=== PATIENT | male | born 1945 | race Caucasian/White ===

== ENCOUNTER 2021-01-28 09:40 | Emergency (ER) | payer MEDICARE, MEDICAID ==
[~2021-01-28 09:40] MED LIST: Albuterol/Ipratropium 3.0-0.5 MG/3 ML Neb Soln NEB ONE
--- NOTE | 2021-01-28 09:48 | EDM.PDOC ---
ED HPI GENERAL MEDICAL PROBLEM - General Chief Complaint: Respiratory Problem Stated Complaint: TROUBLE BREATHING / LUNG CANCER Time Seen by Provider: 01/28/21 09:48 Source of Information: Reports: Patient, Old Records, RN, RN Notes Reviewed History Limitations: Reports: No Limitations - History of Present Illness INITIAL COMMENTS - FREE TEXT/NARRATIVE: Pt presents to ER from home by POV with c/o onset of shortness of breath about 2 days ago, and worse today. Pt states he has lung CA and is receiving chemo from Dr. Conklin. His last chemo was , 01/24/21 and he is due for chemo again this Thursday. Pt denies fever, chills, or sputum production. Admits to cough. He has been using Albuterol at home without relief. He does not have home oxygen. Pt smoked cigarettes from his teenage years until 2019 when he was diagnosed with lung CA. 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 Treatments - Related Data Allergies Allergy/AdvReac Type Severity Reaction Status Date / Time [id number] Reductase Allergy Muscle Verified 01/28/21 10:29 Inhibitor Aches Home Meds: Home Meds Donepezil HCl [Aricept] 10 mg PO BEDTIME 02/06/19 [History] carvediloL [Carvedilol] 25 mg PO DAILY 02/06/19 [History] Doxycycline [Vibramycin] 100 mg PO DAILY 01/28/21 [History] Sodium Chloride 1 tab PO DAILY 01/28/21 [History] Past Medical History Cardiovascular History: Reports: CAD, Cardiomyopathy Respiratory History: Reports: COPD Psychiatric History: Reports: Dementia Oncologic (Cancer) History: Reports: Lung Social & Family History - Family History Family Medical History: No Pertinent Family History - Tobacco Use Tobacco Use Status *Q: Former Tobacco User Tobacco Use Within Last Twelve Months: Cigarettes Years of Tobacco use: 56 Used Tobacco, but Quit: Yes - Living Situation & Occupation Living situation: Reports: Single Occupation: Retired ED ROS GENERAL - Review of Systems Review Of Systems: Comprehensive ROS is negative, except as noted in HPI. ED EXAM, GENERAL - Physical Exam Exam: See Below Exam Limited By: No Limitations General Appearance: Alert, Anxious, Mild Distress, Cachetic Eye Exam: Bilateral Eye: Normal Inspection Ears: Normal External Exam, Hearing Grossly Normal Nose: Normal Inspection, Normal Mucosa, No Blood Throat/Mouth: Normal Lips, Normal Voice, No Airway Compromise Head: Atraumatic, Normocephalic Neck: Normal Inspection, Full Range of Motion Respiratory/Chest: Chest Non-Tender, Decreased Breath Sounds, Crackles, Rhonchi Cardiovascular: Regular Rate, Rhythm, No Edema GI/Abdominal: Normal Bowel Sounds, Soft, Non-Tender Extremities: Normal Inspection, Non-Tender, No Pedal Edema Neurological: Alert, Oriented, No Motor/Sensory Deficits Psychiatric: Normal Mood Skin Exam: Warm, Dry, Intact, Normal Color, No Rash Course - Vital Signs Last Recorded V/S: Last Vital Signs Temp 97.0 F 01/28/21 10:27 Pulse 95 01/28/21 10:27 Resp 28 H 01/28/21 10:27 BP 103/74 01/28/21 10:27 Pulse Ox 72 L 01/28/21 10:27 - Orders/Labs/Meds Orders: Active Orders 24 hr Category Date Time Status Peripheral IV Care [RC] . DIRECTED Care 01/28/21 09:56 Active CULTURE BLOOD [BC] Stat Lab 01/28/21 10:15 Received CULTURE BLOOD [BC] Stat Lab 01/28/21 10:41 Received REFLEX LACTIC ACID YES OR NO [CHEM] Routine Lab 01/28/21 10:48 Received Levofloxacin/Dextrose 5%-Water [Levaquin in D5W 500 MG/ Med 01/28/21 10:36 Active 100 ML] 500 mg Premix Bag 1 bag IV ONETIME Piperacillin/Tazobactam [Zosyn] 3.375 gm Med 01/28/21 11:08 Ordered Sodium Chloride 0.9% [Normal Saline] 100 ml IV ONETIME Sodium Chloride 0.9% [Saline Flush] Med 01/28/21 09:56 Active 10 ml FLUSH ASDIRECTED PRN Blood Culture x2 Reflex Set [OM.PC] Stat Oth 01/28/21 09:55 Ordered Peripheral IV Insertion Adult [OM.PC] Stat Oth 01/28/21 09:56 Ordered Medication Orders Levofloxacin/Dextrose 500 mg/ (Premix) 100 mls @ 100 mls/hr IV ONETIME ONE Stop: 01/28/21 11:35 Last Admin: 01/28/21 10:58 Dose: 100 mls/hr Documented by: PATIENCE Piperacillin Sod/Tazobactam (Sod 3.375 gm/ Sodium Chloride) 100 mls @ 200 mls/hr IV ONETIME ONE Stop: 01/28/21 11:37 Sodium Chloride (Sodium Chloride 0.9% 10 Ml Syringe) 10 ml FLUSH ASDIRECTED PRN PRN Reason: Keep Vein Open Last Admin: 01/28/21 10:28 Dose: 10 ml Documented by: CALLIE Labs: Laboratory Tests 01/28/21 01/28/21 01/28/21 Range/Units 10:15 10:15 10:15 WBC 27.1 H* (5.0-10.0) 10^3/uL RBC 4.19 L (4.6-6.2) 10^6/uL Hgb 13.8 L (14.0-18.0) g/dL Hct 41.4 (40.0-54.0) % MCV 98.8 D (80-100) fL MCH 32.9 (27.0-34.0) pg MCHC 33.3 (33.0-35.0) g/dL Plt Count 114 L (150-450) 10^3/uL Neut % (Auto) 98.0 H (42.2-75.2) % Lymph % (Auto) 1.7 L (20.5-50.1) % [place] % (Auto) 0.2 L (2-8) % Eos % (Auto) 0.0 L (1.0-3.0) % Baso % (Auto) 0.1 (0.0-1.0) % Add Manual Diff Yes Neutrophils % (Manual) 97 H (42-75) % Lymphocytes % (Manual) 2 L (20-50) % Monocytes % (Manual) 1 L (2-8) % Sodium 129 L (136-145) mmol/L Potassium 4.8 (3.5-5.1) mmol/L Chloride 92 L (98-107) mmol/L Carbon Dioxide 27 (21-32) mmol/L Anion Gap 14.8 H (7-13) mEq/L BUN 46 H (7-18) mg/dL Creatinine 0.96 (0.70-1.30) mg/dL Est Cr Clr Drug Dosing 47.64 mL/min Estimated GFR (MDRD) > 60 BUN/Creatinine Ratio 47.9 (No establ ref range) Glucose 135 H (70-99) mg/dL Lactic Acid 2.3 H* (0.4-2.0) mmol/L Calcium 9.2 (8.5-10.1) mg/dL Total Bilirubin 0.8 (0.2-1.0) mg/dL AST 33 (15-37) U/L ALT 63 (16-63) U/L Alkaline Phosphatase 117 H (46-116) U/L Lactate Dehydrogenase 415 H (85-227) U/L B-Natriuretic Peptide 494 H (0-100) pg/ml Total Protein 6.4 (6.4-8.2) g/dL Albumin 2.5 L (3.4-5.0) g/dL Globulin 3.9 Albumin/Globulin Ratio 0.64 Meds: Medications Generic Name Dose Route Start Last Admin Trade Name Freq PRN Reason Stop Dose Admin Levofloxacin/Dextrose 500 mg/ 100 mls @ 100 mls/hr 01/28/21 10:36 01/28/21 10:58 Premix IV 01/28/21 11:35 100 mls/hr ONETIME ONE Administration Piperacillin Sod/Tazobactam 100 mls @ 200 mls/hr 01/28/21 11:08 Sod 3.375 gm/ Sodium Chloride IV 01/28/21 11:37 ONETIME ONE Sodium Chloride 10 ml 01/28/21 09:56 01/28/21 10:28 Sodium Chloride 0.9% 10 Ml Syringe FLUSH 10 ml ASDIRECTED PRN Administration Keep Vein Open Discontinued Medications Generic Name Dose Route Start Last Admin Trade Name Freq PRN Reason Stop Dose Admin Albuterol/Ipratropium Confirm 01/28/21 09:52 01/28/21 10:05 Albuterol/Ipratropium 3.0-0.5 Mg/3 Ml Neb Soln Administered 01/28/21 09:53 3 ml Dose Administration 3 ml .ROUTE .STK-MED ONE Methylprednisolone Sodium Succinate 125 mg 01/28/21 09:54 01/28/21 10:20 Methylprednisolone Sodium Succinate 125 Mg/2 Ml Sdv IVPUSH 01/28/21 09:55 125 mg ONETIME ONE Administration - Radiology Interpretation Free Text/Narrative:: [facility] Final Radiology Report Call: [phone] assistance Online chat: [email or web address] Name: JEANNETTE COLVIN Age: 75Years M Date: 01/28/2021 SSN: -- : [id number] Study: CR CHEST 1V FRONTAL Requesting Physician: TANA FLORENCE Images: 1 Addl Studies: Provided Clinical History: short of breath, Lung CA Contrast: Contrast Medium: Contrast Amount: Contrast Method: CONFIDENTIALITY STATEMENT This report is intended only for use by the referring physician, and only in accordance with law. If you received this in error, call [phone]. Page 1 of 1 PROCEDURE INFORMATION: Exam: XR Chest Exam date and time: 01/28/2021 10:18 AM Age: 75 years old Clinical indication: Other: Short of breath, lung CA TECHNIQUE: Imaging protocol: XR of the chest. Views: 1 view. COMPARISON: CT Chest w Cont 02/06/2019 3:17 PM FINDINGS: Lungs: Diffuse bilateral interstitial infiltrates have progressed since the CT of 02/06/2019 with very coarse and dense infiltrates in the upper lungs. Changes of emphysema Pleural spaces: Focal pleural thickening left upper lung laterally at site of the tumor seen on 02/06/2019 CT. No pleural effusion. No pneumothorax. Heart/Mediastinum: Mediastinal clips. Bones/joints: Sternotomy. Degenerative arthritis spine and shoulders. IMPRESSION: 1. Progression of coarse diffuse bilateral interstitial infiltrates, especially in the upper lungs compared with 02/06/2019 2. Emphysema Thank you for allowing us to participate in the care of your patient. Dictated and Authenticated by: Arti Vail MD 01/28/2021 10:32 AM Central Time ([place] & [place]) Departure - Departure Time of Disposition: 11:11 Disposition: DC/Tfer to Acute Hospital 02 Condition: Serious Clinical Impression: History of lung cancer Pneumonia Qualifiers: Pneumonia type: due to unspecified organism Laterality: bilateral Lung location: unspecified part of lung Qualified Code(s): J18.9 - Pneumonia, unspecified organism Sepsis Qualifiers: Sepsis type: sepsis due to unspecified organism Sepsis acute organ dysfunction status: without acute organ dysfunction Qualified Code(s): A41.9 - Sepsis, unspecified organism - Discharge Information *PRESCRIPTION DRUG MONITORING PROGRAM REVIEWED*: Not Applicable *COPY OF PRESCRIPTION DRUG MONITORING REPORT IN PATIENT CLAIRE: Not Applicable Forms: ED Department Discharge, Interfacility Transfer [facility] Sepsis Event Note (ED) - Focused Exam Vital Signs: Vital Signs Temp Pulse Resp BP Pulse Ox 01/28/21 10:27 97.0 F 95 28 H 103/74 72 L - My Orders Last 24 Hours: My Active Orders 01/28/21 09:55 Blood Culture x2 Reflex Set [OM.PC] Stat 01/28/21 09:56 Peripheral IV Care [RC] . DIRECTED Sodium Chloride 0.9% [Saline Flush] 10 ml FLUSH ASDIRECTED PRN Peripheral IV Insertion Adult [OM.PC] Stat 01/28/21 10:15 CULTURE BLOOD [BC] Stat 01/28/21 10:36 Levofloxacin/Dextrose 5%-Water [Levaquin in D5W 500 MG/100 ML] 500 mg Premix Bag 1 bag IV ONETIME 01/28/21 10:41 CULTURE BLOOD [BC] Stat 01/28/21 10:48 REFLEX LACTIC ACID YES OR NO [CHEM] Routine 01/28/21 11:08 Piperacillin/Tazobactam [Zosyn] 3.375 gm Sodium Chloride 0.9% [Normal Saline] 100 ml IV ONETIME - Assessment/Plan Last 24 Hours: My Active Orders 01/28/21 09:55 Blood Culture x2 Reflex Set [OM.PC] Stat 01/28/21 09:56 Peripheral IV Care [RC] . DIRECTED Sodium Chloride 0.9% [Saline Flush] 10 ml FLUSH ASDIRECTED PRN Peripheral IV Insertion Adult [OM.PC] Stat 01/28/21 10:15 CULTURE BLOOD [BC] Stat 01/28/21 10:36 Levofloxacin/Dextrose 5%-Water [Levaquin in D5W 500 MG/100 ML] 500 mg Premix Bag 1 bag IV ONETIME 01/28/21 10:41 CULTURE BLOOD [BC] Stat 01/28/21 10:48 REFLEX LACTIC ACID YES OR NO [CHEM] Routine 01/28/21 11:08 Piperacillin/Tazobactam [Zosyn] 3.375 gm Sodium Chloride 0.9% [Normal Saline] 100 ml IV ONETIME
[2021-01-28] MEDS ORDERED: Albuterol/Ipratropium 3.0-0.5 MG/3 ML Neb Soln ONE (09:52)
[2021-01-28] MEDS ORDERED: methylPREDNISolone Sodium Succinate 125 MG/2 ML SDV IVPUSH ONE (09:54)
[2021-01-28] MEDS ORDERED: Sodium Chloride 0.9% 10 ML Syringe FLUSH PRN (09:56)
[2021-01-28 10:29] VITALS: BP 103/74; PULSE 95
--- NOTE | 2021-01-28 10:33 | CR ---
PROCEDURE INFORMATION: Exam: XR Chest Exam date and time: 01/28/2021 10:18 AM Age: 75 years old Clinical indication: Other: Short of breath, lung CA TECHNIQUE: Imaging protocol: XR of the chest. Views: 1 view. COMPARISON: CT Chest w Cont 02/06/2019 3:17 PM FINDINGS: Lungs: Diffuse bilateral interstitial infiltrates have progressed since the CT of 02/06/2019 with very coarse and dense infiltrates in the upper lungs. Changes of emphysema Pleural spaces: Focal pleural thickening left upper lung laterally at site of the tumor seen on 02/06/2019 CT. No pleural effusion. No pneumothorax. Heart/Mediastinum: Mediastinal clips. Bones/joints: Sternotomy. Degenerative arthritis spine and shoulders. IMPRESSION: 1. Progression of coarse diffuse bilateral interstitial infiltrates, especially in the upper lungs compared with 02/06/2019 2. Emphysema
[2021-01-28] MEDS ORDERED: Levofloxacin/Dextrose 5%-Water 500 MG in Premix Bag 1 BAG IV ONE (10:36)
[2021-01-28 10:41] LABS: ANION GAP 14.8 mEq/L (7-13); CHLORIDE,CL 92 mmol/L (98-107); SODIUM,NA 129 mmol/L (136-145)
[2021-01-28] MEDS ORDERED: Piperacillin/Tazobactam 3.375 GM in Sodium Chloride 0.9% 100 ML IV ONE (11:08)
== END 2021-01-28 11:47 ==
LOC: DL.ED 09:40
DX: A41.9 Sepsis, unspecified organism (principal); J18.9 Pneumonia, unspecified organism; I25.10 Atherosclerotic heart disease of native coronary artery without angina pectoris; J44.9 Chronic obstructive pulmonary disease, unspecified; F03.90 Unspecified dementia, unspecified severity, without behavioral disturbance, psychotic disturbance, mood disturbance, and anxiety; Z85.118 Personal history of other malignant neoplasm of bronchus and lung; Z87.891 Personal history of nicotine dependence; Z88.8 Allergy status to other drugs, medicaments and biological substances; Z79.899 Other long term (current) drug therapy
CPT/HCPCS: 36415; 71045; 80053; 83605; 83615; 83880; 85025; 87040; 94640; 96365; 96368; 96375; 99285; J1956; J2543; J2930; J7620-GY